=== PATIENT | male | born 1955 | race Caucasian/White ===

== ENCOUNTER 2017-10-28 11:45 | Emergency (ER) | payer OTHER ==
[~2017-10-28] VITALS: Ht 170.2 cm; Wt 63.5 kg
[2017-10-28 12:35] LABS: ABSOLUTE BASOPHIL COUNT 0.1 /CUMM (0.0-0.2); ABSOLUTE EOSINOPHIL COUNT 0.1 /CUMM (0.0-0.7); ABSOLUTE GRANULOCYTE CT 7.5 /CUMM (1.4-6.5); ABSOLUTE LYMPH COUNT 2.4 /CUMM (1.2-3.4); ABSOLUTE MONOCYTE COUNT 1.3 /CUMM (0.10-0.60); BASOPHIL % 0.5 % (0.0-2.0); EOSINOPHIL % 0.5 % (0-5); GRANULOCYTE % 66.3 % (42.2-75.2); HEMATOCRIT 45.4 % (42-52); MEAN CORPUSCULAR HGB 30.5 PG (27.0-31.0); MEAN CORPUSCULAR HGB CONC 32.7 G/DL (33.0-37.0); MEAN CORPUSCULAR VOLUME 93.3 FL (80.0-94.0); MEAN PLATELET VOLUME 8.5 FL (7.4-10.4); PLATELET COUNT 234 /CUMM (130-400); RBC DISTRIBUTION WIDTH 13.9 % (11.5-14.5); RED BLOOD CELL CT 4.87 /CUMM (4.70-6.10); WHITE BLOOD CELL COUNT 11.3 /CUMM (4.8-10.8)
--- NOTE | 2017-10-28 13:28 | ED GENERAL ADULT ---
History of Present Illness General Chief Complaint: ETOH/Drug Related Complaint Stated Complaint: PT NEEDS DETOX FROM ALOCHOL Source: patient Exam Limitations: no limitations Vital Signs & Intake/Output Vital Signs & Intake/Output Vital Signs Date Time Temp Pulse Resp B/P B/P Pulse O2 O2 Flow FiO2 Mean Ox Delivery Rate 10/28 1635 98.2 88 20 163/90 97 Room Air 10/28 1631 98.2 88 20 163/90 10/28 1340 97.2 78 18 144/77 10/28 1336 97 Room Air 10/28 1254 98.4 87 18 124/87 98 Room Air 10/28 1208 97.2 78 18 144/77 96 Room Air Room Air Allergies Coded Allergies: No Known Allergies (10/28/17) Triage Note: 62 YEAR OLD MALE REQUESTING ETOH DETOX. PT REPORTS LAST DRINK 6 SHOTS OF ARMEN 30 MINUTES AGO. REPORTS LAST ETOH DETOX 18 YEARS AGO AND WAS SOBER FOR 2 YEARS. PT DENIES SI/HI, ALSO REPORTS USE OF MARIJUANA. Triage Nurses Notes Reviewed? yes Onset: Gradual Duration: worse persistent since (several months) Timing: recent history Injury Environment: home Severity: moderate Severity Numbers: 8 No Modifying Factors: none HPI: Patient is a 62-year-old male with history of alcohol abuse presenting to the emergency department with chief complaint of wanting alcohol detox. No history of withdrawal seizures. Patient has been drinking alcohol for the past 18 years. He went through detox once 18 years ago and with palpation. Denies any suicidal or homicidal ideation. Patient drinks 6-12 daily. Mostly drinks hard alcohol. Last drink was prior to arrival and he had 6. He reports he drinks daily. He does not drink he feels a little shaky in the morning. Denies any GI upset any visual or auditory hallucinations. Denies any depression or increased anxiety. (Lynn Ocasio) Past History Travel History Traveled to [place] past 21 day No Medical History Any Pertinent Medical History? see below for history Cardiovascular: hypertension, hyperlipidemia Gastrointestinal: pancreatitis Musculoskeletal: osteoarthritis Psychiatric: alcohol dependence, anxiety Surgical History Surgical History: non-contributory Psychosocial History What is your primary language Mongolian Tobacco Use: Current Daily Use Daily Tobacco Use Amount/Type: =< 4 Cigarettes daily ETOH Use: alcoholic Family History Hx Contributory? No (Lynn Ocasio) Review of Systems Review of Systems Constitutional: Reports: no symptoms. Comments Review of systems: See HPI, All other systems negative. Constitutional, no chills fever or weight loss HEENT: No visual changes no sore throat no congestion Cardiovascular: No chest pain ,palpitation Skin, no jaundice no rashes Respiratory: No dyspnea cough sputum or hemoptysis GI: No nausea no vomiting : No dysuria No hematuria Muscle skeletal: no back pain, no neck pain, Neurologic: No numbness no confusion and no headaches Psych: No stress anxiety or depression,. Heme/endocrine: No bruising no bleeding no polyuria or polydipsia Immunology: No splenectomy or history of AIDS (Lynn Ocasio) Physical Exam Physical Exam General Appearance: well developed/nourished, no apparent distress, alert, awake , comfortable Comments: Well-developed well-nourished person in no acute distress HEENT: Traumatic, normocephalic Neck: Normal inspection Cardiovascular: Regular rate and rhythms no murmurs rubs or gallops, normal JVP Respiratory: Chest nontender. No respiratory distress.breath sounds clear to auscultation bilaterally abdomen: Soft nontender, positive normal active bowel sounds throughout. Extremity: No edema Neuro: Alert oriented x3 Skin: No appreciable rash on exposed skin, skin is warm and dry. Psych: Appears slightly intoxicated, pleasant, memory and judgment is normal. Core Measures ACS in differential dx? No CVA/TIA Diagnosis: No Sepsis Present: No Sepsis Focused Exam Completed? No (Lynn Ocasio) Progress Differential Diagnoses I considered the following diagnoses in my evaluation of the patient: Alcohol detox, alcohol dependence, polysubstance abuse and alcohol withdrawal Plan of Care: Orders Procedure Date/time Status Add-on Test (ER Only) 10/28 1328 Active CIWA 10/28 1328 Active URINE DRUG SCREEN FOR ER ONLY 10/28 1328 Complete LIPASE 10/28 1220 Complete AMYLASE 10/28 1220 Complete ETHANOL 10/28 1212 Complete COMPREHENSIVE METABOLIC PANEL 10/28 1212 Complete CBC WITHOUT DIFFERENTIAL 10/28 1212 Complete Laboratory Tests 10/28/17 1330: Urine Opiates Screen < 100.00, Methadone Screen 43, Barbiturate Screen < 60, Ur Phencyclidine Scrn < 6.00, Amphetamines Screen < 100, U Benzodiazepines Scrn < 85, Urine Cocaine Screen < 50, Urine Cannabis Screen 68.20 H 10/28/17 1220: Anion Gap 13, Estimated GFR > 60, BUN/Creatinine Ratio 12.9, Glucose 65, Calcium 9.5, Total Bilirubin 0.4, AST 25, ALT 45, Alkaline Phosphatase 44, Total Protein 7.1, Albumin 4.4, Globulin 2.7, Albumin/Globulin Ratio 1.6, Amylase 87, Lipase 142, CBC w Diff NO MAN DIFF REQ, RBC 4.87, MCV 93.3, MCH 30.5, MCHC 32.7 L, RDW 13.9, MPV 8.5, Gran % 66.3, Lymphocytes % 21.4, Monocytes % 11.3 H, Eosinophils % 0.5, Basophils % 0.5, Absolute Granulocytes 7.5 H, Absolute Lymphocytes 2.4, Absolute Monocytes 1.3 H, Absolute Eosinophils 0.1, Absolute Basophils 0.1, Serum Alcohol 139.0 After being in the emergency department for 4-1/2 hours patient still scoring a 0 on ciwa . Patient will not be requirement for hospitalization for detox. Patient would like to go home and discuss options with his . Patient currently on gabapentin to help with anxiety. Encouraged to continue taking Depakote Pentonif prescribed. He was given a dose here in the emergency department. He was given a list of detox facilities as well as information to contact [facility]'s. Patient educated and informed of signs and symptoms return. Patient is not suicidal or homicidal. Patient's was picking him up. clinically sober. Initial ED EKG: none (Lynn Ocasio) Departure Departure Time of Disposition: 1644 Disposition: HOME OR SELF CARE Condition: Stable Clinical Impression Primary Impression: Alcohol dependence Qualifiers: Substance use status: unspecified alcohol-induced disorder Qualified Code: F10.29 - Alcohol dependence with unspecified alcohol-induced disorder Referrals: Darnell FRENCH,Jd Medina (PCP/Family) Additional Instructions: follow up with recommendations given to. Return for worsening symptoms or concerns. take all medicaitons as prescirbed. [facility]'s phone number is the following . If you call them they will be get you in relatively quickly. Departure Forms: Customer Survey General Discharge Information (Lynn Ocasio) PA/SKULL CHOPPER Co-Sign Statement Statement: ED Attending supervision documentation- [] I saw and evaluated the patient. I have also reviewed all the pertinent lab results and diagnostic results. I agree with the findings and the plan of care as documented in the PA's/SKULL CHOPPER's documentation. [x] I have reviewed the ED Record and agree with the PA's/SKULL CHOPPER's documentation. [] Additions or exceptions (if any) to the PAs/SKULL CHOPPER's note and plan are summarized below: [] (Tim AMBRIZ,Sal Valderrama) Critical Care Note Critical Care Note Critical Care Time: non-applicable (Celine JOHNSON,Lynn)
[2017-10-28 16:35] VITALS: BP 163/90
== END 2017-10-28 17:14 ==
LOC: ERH 11:45
PROVIDERS: Emergency Medicine
DX: F10.20 Alcohol dependence, uncomplicated (principal)
CPT/HCPCS: 80307; G0480